=== PATIENT | female | born 1975 | race Two or more races ===

== ENCOUNTER 2016-08-10 12:54 | Emergency (ER) | payer BC ==
[~2016-08-10] VITALS: Ht 160 cm; Wt 84.0 kg
[~2016-08-10 12:54] MED LIST: ADVIL200 M1; IBUPROFEN600 MG; MOBIC7.5 MG PO; TRAMADOL HCL50 MG; ZOFRAN4 MG PO
[2016-08-10 14:08] LABS: ADD MIUA? NO; BILIRUBIN NEGATIVE; BLOOD NEGATIVE; COLOR YELLOW ((YELLOW)); GLUCOSE (STRIP) NEGATIVE; KETONES NEGATIVE; LEUKOCYTES NEGATIVE; NITRITE NEGATIVE; PROTEIN (STRIP) NEGATIVE; SPECIFIC GRAVITY 1.015 (1.000-1.030); UROBILINOGEN 0.2 MG/DL (0.2-1.0)
[2016-08-10] MEDS ORDERED: FIORICET 50-301 EACH PO (16:04)
[2016-08-10 16:05] VITALS: BP 152/82
== END 2016-08-10 16:14 | disposition home or self-care (01) ==
LOC: EME 12:54
PROVIDERS: Nurse Practitioner Family
DX: R51 Headache (principal); G43.909 Migraine, unspecified, not intractable, without status migrainosus
CPT/HCPCS: 81003; 99281; 99284